=== PATIENT | female | born 1975 | race Two or more races ===

== ENCOUNTER 2020-08-21 06:52 | Day surgery (SDC) | payer OTHER ==
[~2020-08-21 06:52] MED LIST: PROPRANOLOL HCL60 MG PO; ZOLPID PO
== END 2020-08-21 19:15 | disposition home or self-care (01) ==
LOC: CIR.AMB 06:52
PROVIDERS: ATTEND Surgery
DX: D05.02 Lobular carcinoma in situ of left breast (principal); D05.12 Intraductal carcinoma in situ of left breast; N65.1 Disproportion of reconstructed breast; Z20.822 Contact with and (suspected) exposure to COVID-19
CPT/HCPCS: 19303; 38525; 38792; 19342; C1789

== ENCOUNTER 2021-12-24 06:06 | Day surgery (SDC) | payer OTHER ==
[~2021-12-24] VITALS: Ht 162.6 cm; Wt 63.5 kg
== END 2021-12-24 16:50 | disposition home or self-care (01) ==
LOC: CIR.AMB 06:06
PROVIDERS: ATTEND Plastic Surgery
DX: N65.1 Disproportion of reconstructed breast (principal); Z90.12 Acquired absence of left breast and nipple; Z20.822 Contact with and (suspected) exposure to COVID-19
CPT/HCPCS: 15771; 19342; 19316; L8600

== ENCOUNTER 2022-09-02 06:33 | Day surgery (SDC) | payer OTHER ==
[~2022-09-02] VITALS: Ht 160 cm; Wt 63.5 kg
== END 2022-09-02 19:15 | disposition home or self-care (01) ==
LOC: CIR.AMB 06:33
PROVIDERS: ATTEND Surgery
DX: D05.01 Lobular carcinoma in situ of right breast (principal); N60.81 Other benign mammary dysplasias of right breast; R59.0 Localized enlarged lymph nodes; Z90.11 Acquired absence of right breast and nipple; Z20.822 Contact with and (suspected) exposure to COVID-19; N64.89 Other specified disorders of breast

== ENCOUNTER 2024-06-28 07:00 | Day surgery (SDC) | payer OTHER ==
[2024-06-27 09:55] VITALS: BP 95/64
[~2024-06-28] VITALS: Ht 160 cm; Wt 59.0 kg
[2024-06-28] MEDS ORDERED: CEFAZOLIN SODIUM 1,000 MG VIAL ONE (08:09)
[2024-06-28] MEDS ORDERED: CHLORHEXIDINE GLUCONATE 120 ML BOTTLE TOP ONE (08:09)
[2024-06-28] MEDS ORDERED: MORPHINE SULFATE 4 MG/ML VIAL IV ONE (13:05)
== END 2024-06-28 15:20 | disposition home or self-care (01) ==
LOC: CIR.AMB 07:00
PROVIDERS: ATTEND Surgery
DX: D05.12 Intraductal carcinoma in situ of left breast (principal); C79.89 Secondary malignant neoplasm of other specified sites; I49.9 Cardiac arrhythmia, unspecified